=== PATIENT | female | born 1975 | race Caucasian/White ===

== ENCOUNTER 2024-07-16 14:53 | Inpatient (IN) | payer MEDICAID, SELFPAY ==
[2024-07-16] VITALS (25 sets, daily range): BP systolic 116–174; BP diastolic 71–98; PULSE 77–101; RESP 8–29; TEMP 36.3–37.7; O2SAT 95–100
--- NOTE | 2024-07-16 14:55 | W.ED.GENAD ---
Discharge Plan Disposition Patient Disposition: Admit to [facility] Condition: Fair Discharge Details Clinical Impression: Vomiting, Dehydration, BENNIE (acute kidney injury) Primary Care Provider: Laina,Local ED Provider: Dev Haynes Home Meds and New Rx's Prescriptions: No Action No Known Home Meds [facility] General Mode of arrival: EMS. Date/Time Provider Initiated Documentation: 07/16/24 14:55. Limitations to Documentation: no limitations. Information obtained by: patient and RN notes reviewed. HPI Narrative: Patient presents to ED with complaint of vomiting for over 24 hours now. She felt fine on Friday. Began with vomiting morning. She denies having any abdominal pain. She denies nausea but reports that if she tries to eat or drink anything she vomits it back up. She has had no bowel movement and is passed very little gas. Has urinated only once today. Denies any back pain. Denies any fever, cough, chest pain, shortness of breath. She does report muscle spasms and foot cramping. Only previous abdominal surgery is . Because of continued vomiting called EMS and came to ED this afternoon. Related Data Home Medications ?Medication ?Instructions ?Recorded ?Confirmed Unknown [No Known Home Meds] 07/16/24 07/16/24 Allergies Allergy/AdvReac Type Severity Reaction Status Date / Time No Known Allergies Allergy Unverified 07/16/24 14:59 Exam Narrative Exam Narrative: Const: WDWN female in NAD. VS per triage. HEENT: NC/AT. Normal facial exam. Neck: Supple. Trachea midline. Lungs: Normal respiratory effort. Lungs are clear. Cor: RRR without murmur. Good radial pulses. GI: Soft/ND/NT. Neuro: A+O x 3. Normal speech, mentation, gait. Cranial nerves II - XII grossly intact. No gross motor or sensory deficit. Ext: No C/C/E. Medical Decision Making Patient presenting to ED with complaint of vomiting. She denies having abdominal pain or nausea but cannot tolerate anything orally. She is having cramping and foot spasms. She reports no bowel movement and minimal flatus. Only abdominal surgery prior was C-sections. Exam is unremarkable. She has received about 500 mL of fluid in route from EMS. Despite lack of abdominal pain consider obstruction given her report of no bowel movement and minimal flatus. Will continue IV fluids, obtain laboratory studies and CT of the abdomen pelvis. Patient CBC with white count of 25.5, hemoglobin 17.1, hematocrit 50 suggesting significant dehydration and hemoconcentration. Her other labs unfortunately hemolyzed twice. CT scan was obtained which shows no significant abnormality, nothing acute. She had been ordered for a second liter of LR given evidence of hemoconcentration. Subsequent labs did return and patient found to have acute kidney injury with a BUN of 40 and a creatinine of 4.3. Electrolytes not significantly abnormal with her potassium being 3.4, calcium 10.8, anion gap of 16.6. Patient's liver function is normal. Urinalysis is positive for blood and ketones negative for infection and 5-10 red cells seen on micro. Will continue the LR at 150 an hour after her second liter. I have added a CPK given the complaint of muscle pain and blood in the urine but there is no new medications, no change in exertional activity, no recent viral illnesses. She does not have muscle tenderness on exam. I have discussed findings with patient and her family. She will require admission for further fluids and repeat labs. She is agreeable to admission. Case discussed with hospitalist. Lab Data Lab results reviewed: Yes I reviewed the patient's lab results. Lab results narrative: see [facility] All Active Problems (Updated 07/16/24 @ 18:59 by Dev Haynes MD) BENNIE (acute kidney injury) (Acute) Dehydration (Acute) Vomiting (Acute) Medical History No significant past medical history Surgical History History of section Social History Smoking/Tobacco Use Status: Current every day Tobacco Type: cigarettes Smoking risk assessment performed?: Yes Drug use: Daily Substance use type: does not use and marijuana Housing: house Do you feel safe at home: Yes Do you feel safe in your relationship?: Yes
--- NOTE | 2024-07-16 15:32 | DI.CT_ITS ---
Exam(s) CT ABDOMEN PELVIS W EXAM: CT ABDOMEN PELVIS W CLINICAL HISTORY: persistent vomiting, no BM/flatus. TECHNIQUE: Imaging Protocol: Axial computed tomography images with coronal and sagittal reformatted images were created and reviewed CONTRAST MATERIAL: Intravenous: Omnipaque 350 Contrast volume:75 ml Oral: no COMPARISON: No exams were available for comparison FINDINGS: ABDOMEN and PELVIS: Lung Bases: No acute findings. Liver: Normal density. No suspicious mass. Gallbladder and biliary tract: No radiodense calculus. No wall thickening or pericholecystic fluid. No biliary dilation. Pancreas: Normal density. No abnormal calcifications or inflammatory process. No evidence of mass. Spleen: Normal. Kidneys: Normal size, contour and axis. No radiodense stones. No obstructive uropathy. No suspicious masses seen. Adrenal glands: Prominent bilaterally. No masses seen. Vasculature: Abdominal aorta non-dilated. Soft tissues: Unremarkable. Bladder: No gross wall thickening. No calculi.No focal mass. Bowel: No obstruction. No bowel wall thickening. Appendix normal. Moderate quantity of stool in th e right side of colon. A small quantity of stool distally. Peritoneal cavity: No ascites. No focal collection. No mesenteric inflammatory response. No free air . Bones: Unremarkable for age. Reproductive organs: Retroflexed uterus with fibroids. 3.5 centimeter posterior pedunculated fibroid . Lymph nodes: No pathologically enlarged lymph nodes. IMPRESSION:: No acute abnormality in the abdomen or pelvis. RADIATION DOSE DELIVERED: Total DLP DATA REPOSITORY: All CT scans at this facility are submitted to the National Radiology Data Registry (NRDR) Dose Index Registry (DIR) with the [employer] (ACR). RADIATION OPTIMIZATION: All CT scans at this facility use at least one of these dose optimization te chniques: automated exposure control; mA and/or kV adjustment per patient size (includes targeted exa ms where dose is matched to clinical indication); or iterative reconstruction.
[2024-07-16] MEDS: Lactated Ringers 1,000 ML 1000 ML IV ×2 (15:40→17:14)
[2024-07-16] MEDS: Ondansetron 4 MG/2 ML VIAL IVP ×2 (15:41→22:43)
[2024-07-16 15:53] LABS: Abs Immature Grans 0.16 10^3/uL (0.0-0.06); HCT 49.9 % (36.0-46.0); HGB 17.1 g/dL (11.2-15.7); MCH 29.8 pg (27.0-33.0); MCHC 34.3 % (32.0-36.0); MCV 87 fL (80-95); MPV 10.5 fL (8.0-11.0); Platelet Count 380 10^3/uL (130-400); RBC 5.74 10^6/uL (3.93-5.22); RDW 13.4 % (11.7-14.6); RDW-SD 42.6 fL
[2024-07-16 15:57] LABS: WBC 25.49 10^3/uL (4.4-10.8)
[2024-07-16 16:06] LABS: Absolute Neutrophil Count 21.67 10^3/uL (1.2-6.7)
[2024-07-16 16:07] LABS: Absolute Lymphocyte Count 1.27 10^3/uL (1.2-3.4); Absolute Monocyte Count 2.55 10^3/uL (0.1-0.8); Atypical Lymphocytes % 2 %; Diff Comment Manual Differential; RBC Morphology Normal
[2024-07-16] MEDS: Omnipaque 350 MG/ML 100 ML BTL IJ (16:35)
[2024-07-16] MEDS: Normal Saline - Diluent 50 ML VIAL IJ (16:35)
[2024-07-16 17:45] LABS: ALT 16 U/L (14-59); AST 16 U/L (15-37); Albumin 4.4 g/dL (3.4-5.0); Alkaline Phosphatase 69 U/L (46-116); Anion Gap 16.6 mmol/L (3-11); BUN 40 mg/dL (7-18); Bilirubin, Total 0.4 mg/dL (0.2-1.0); CO2 25.4 mmol/L (21.0-32.0); Calcium 10.8 mg/dL (8.5-10.1); Chloride 103 mmol/L (98-107); Estimated GFR 12.15 (mL/min/1.73m2); Glucose 129 mg/dL (74-106); Lipase 29 U/L (<78); Magnesium 2.2 mg/dL (1.8-2.4); Potassium 3.4 mmol/L (3.5-5.1); Sodium 145 mmol/L (136-145); Total Protein 8.2 g/dL (6.4-8.2)
[2024-07-16 17:50] LABS: Bilirubin Small (Negative); Blood Large (Negative); Clarity Cloudy (Clear); Glucose Negative (Negative); Ketones Trace mg/dL (Negative); Leukocyte Esterase Negative (Negative); Nitrite Negative (Negative); Specific Gravity 1.015 (1.005-1.025); Urobilinogen 0.2 mg/dL (Up to 0.2)
[2024-07-16 17:53] LABS: CREATININE 4.3 mg/dL (0.55-1.02)
[2024-07-16 18:00] LABS: Epithelial Cells Few HPF (Negative); WBC Negative HPF (0-5)
[2024-07-16 18:01] LABS: Bacteria Negative HPF (Negative); C & S Indicated? No; Casts Negative LPF (Negative); Crystals Negative HPF (Negative); Mucus Negative (Negative)
[2024-07-16 18:33] LABS: Lab Add On Test DONE
[2024-07-16 18:48] LABS: Creatine Kinase 478 U/L (26-192)
--- NOTE | 2024-07-16 18:59 | W.PM.HP.N ---
Date of service: 07/16/24 Time of Service: 19:00 Assessment and Plan Assessment and plan (1) BENNIE (acute kidney injury): Start date: 07/16/24 Status: Acute Assessment and plan: This is a 48-year-old lady who presents with intractable emesis for 1 day prior to admission with acute dehydration and markedly increased creatinine with moderately increased BUN. She also was heme-concentrated with a leukemoid reaction with blood cultures performed. She had no fever or obvious source of infection with imaging. She is doing well with IV hydration and is will be continued with follow-up lab in the morning. She will receive Zofran for nausea though this is minimal. She does have THC in her urine drug screen and if she does smoke marijuana heavily this should be discussed. I did not discuss it with the patient. She is a full code. (2) Dehydration: Start date: 07/16/24 Status: Acute Assessment and plan: IV hydration with lab monitoring. Patient is tolerating fluids well. (3) Vomiting: Start date: 07/16/24 Status: Acute Assessment and plan: Zofran IV as needed for nausea. Patient did receive 1 dose of Ativan for anxiety and anemia during the night. (4) Leukocytosis (leucocytosis): Start date: 07/16/24 Status: Acute Assessment and plan: Follow-up blood cultures and this should resolve as patient is rehydrated with treatment for her emesis. History of Present Illness History of Present Illness Chief Complaint: Intractable nausea with muscle cramps in feet. Narrative: This is a 48-year-old female patient who has had sudden onset intractable nausea over the last day. She presented to ED because of continued vomiting and was found to have acute renal failure with a creatinine for time baseline and BUN moderately elevated. Potassium was slightly low and the anion gap was elevated with CPK slightly elevated. She was hemoconcentrated with an elevated WBC as well as hemoglobin and slightly reactive platelet count. She had no diarrhea and had no fever or chills. She denied any exposure to ill person living with her father and daughter. 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 She generally is healthy on no medical therapy. She denies any alcohol intake and does not use illicit drugs. Urine drug screen did show THC but no other positive findings. Patient was admitted for IV hydration and did feel better after IV fluid boluses in the ED with continued IV hydration and lab to be reevaluated in the morning. She was admitted for observation. She is a full code. Review of Systems Narrative: 13 point review of systems otherwise unrevealing or stable. Patient does have problems with insomnia when anxious or her mind is overloaded. He takes no medical therapy for this. PFSH All Active Problems (Updated 07/16/24 @ 21:07 by JERRY BROCK) Leukocytosis (leucocytosis) (Acute) BENNIE (acute kidney injury) (Acute) Dehydration (Acute) Vomiting (Acute) Medical History No significant past medical history Surgical History History of section Social History Smoking/Tobacco Use Status: Current every day Tobacco Type: cigarettes Smoking risk assessment performed?: Yes Drug use: Daily Substance use type: does not use and marijuana Housing: house Do you feel safe at home: Yes Do you feel safe in your relationship?: Yes Meds Allergies and Home Medications Allergies Allergy/AdvReac Type Severity Reaction Status Date / Time No Known Allergies Allergy Unverified 07/16/24 14:59 Home Medications ?Medication ?Instructions ?Recorded ?Confirmed ?Type Unknown [No Known Home Meds] 07/16/24 07/16/24 History Exam Narrative Exam Narrative: General: Patient appears appropriate for age, mildly obese, alert and oriented x 3 and in no acute distress. She is slightly anxious and did receive Ativan for sleep. HEENT: Normocephalic, eyes with pupils equal and reactive light symmetric, extraocular movement intact and sclera anicteric. Oropharynx with dry mucosa and good dentition. Neck: Supple without JVD. Back: Normal posture without CVA tenderness. Lungs: Good aeration and no focal rales or rhonchi. Normal vesicular breath sounds. No expiratory wheeze. Breast: Exam deferred. Heart: Regular rate and rhythm with no murmurs or gallops appreciated. Abdomen: Obese contour, soft and nontender to palpation with no palpable hepatosplenomegaly. Bowel sounds positive and normoactive in all quadrants. Genitalia/rectal: Exam deferred. Extremities: No clubbing, cyanosis or pitting edema. Peripheral pulses intact. Skin: Normal color, warm and dry. Neuro: Cranial nerves II through XII gross intact, no focalized motor deficits and no tremor. Psych: Slightly anxious, good eye contact and normal affect. Normal mood. No abnormal thought processes. Remote and recent memory intact. Results Imaging Imaging Studies: Date of Exam: 07/16/24 EXAM: CT ABDOMEN PELVIS W CLINICAL HISTORY: persistent vomiting, no BM/flatus. TECHNIQUE: Imaging Protocol: Axial computed tomography images with coronal and sagittal reformatted images were created and reviewed CONTRAST MATERIAL: Intravenous: Omnipaque 350 Contrast volume:75 ml Oral: no COMPARISON: No exams were available for comparison FINDINGS: ABDOMEN and PELVIS: Lung Bases: No acute findings. Liver: Normal density. No suspicious mass. Gallbladder and biliary tract: No radiodense calculus. No wall thickening or pericholecystic fluid. No biliary dilation. Pancreas: Normal density. No abnormal calcifications or inflammatory process. No evidence of mass. Spleen: Normal. Kidneys: Normal size, contour and axis. No radiodense stones. No obstructive uropathy. No suspicious masses seen. Adrenal glands: Prominent bilaterally. No masses seen. Vasculature: Abdominal aorta non-dilated. Soft tissues: Unremarkable. Bladder: No gross wall thickening. No calculi.No focal mass. Bowel: No obstruction. No bowel wall thickening. Appendix normal. Moderate quantity of stool in the right side of colon. A small quantity of stool distally. Peritoneal cavity: No ascites. No focal collection. No mesenteric inflammatory response. No free air. Bones: Unremarkable for age. Reproductive organs: Retroflexed uterus with fibroids. 3.5 centimeter posterior pedunculated fibroid. Lymph nodes: No pathologically enlarged lymph nodes. IMPRESSION:: No acute abnormality in the abdomen or pelvis. Labs 07/16/24 15:07 07/16/24 16:56 Labs: Laboratory Results - last 24 hr 07/16/24 07/16/24 07/16/24 15:07 16:32 16:56 WBC 25.49 H* RBC 5.74 H Hgb 17.1 H Hct 49.9 H MCV 87 MCH 29.8 MCHC 34.3 RDW 13.4 Plt Count 380 MPV 10.5 Immature Gran % 0.0 Neutrophils % 85.0 Lymphocytes % 3.0 Atypical Lymphs % 2 Monocytes % 10.0 Eosinophils % 0.0 Basophils % 0.0 Nucleated RBC % 0.0 Absolute Neutrophils 21.67 H Absolute Lymphocytes 1.27 Absolute Monocytes 2.55 H Absolute Eosinophils 0.00 Absolute Basophils 0.00 RBC Morphology Normal Sodium 145 Potassium 3.4 L Chloride 103 Carbon Dioxide 25.4 Anion Gap 16.6 H BUN 40 H Creatinine 4.3 H* Est GFR (CKD-EPI 2020) 12.15 Glucose 129 H Calcium 10.8 H Magnesium 2.2 Total Bilirubin 0.4 AST 16 ALT 16 Alkaline Phosphatase 69 Creatine Kinase 478 H Total Protein 8.2 Albumin 4.4 Lipase 29 Urine Color Urine Clarity Urine pH Ur Specific [place] Urine Protein Urine Ketones Urine Blood Urine Nitrite Urine Bilirubin Urine Urobilinogen Ur Leukocyte Esterase Urine RBC Urine WBC Ur Epithelial Cells Urine Crystals Urine Bacteria Urine Casts Urine Mucus Ur Culture Indicated? Urine Glucose Add-On Test Request 07/16/24 07/16/24 17:40 18:02 WBC RBC Hgb Hct MCV MCH MCHC RDW Plt Count MPV Immature Gran % Neutrophils % Lymphocytes % Atypical Lymphs % Monocytes % Eosinophils % Basophils % Nucleated RBC % Absolute Neutrophils Absolute Lymphocytes Absolute Monocytes Absolute Eosinophils Absolute Basophils RBC Morphology Sodium Potassium Chloride Carbon Dioxide Anion Gap BUN Creatinine Est GFR (CKD-EPI 2020) Glucose Calcium Magnesium Total Bilirubin AST ALT Alkaline Phosphatase Creatine Kinase Total Protein Albumin Lipase Urine Color Yellow Urine Clarity Cloudy Urine pH 5.0 Ur Specific [place] 1.015 Urine Protein >=300 H Urine Ketones Trace H Urine Blood Large H Urine Nitrite Negative Urine Bilirubin Small H Urine Urobilinogen 0.2 Ur Leukocyte Esterase Negative Urine RBC 5-10 H Urine WBC Negative Ur Epithelial Cells Few Urine Crystals Negative Urine Bacteria Negative Urine Casts Negative Urine Mucus Negative Ur Culture Indicated? No Urine Glucose Negative Add-On Test Request DONE Last Vital Signs Temp 36.3 C L 07/16/24 15:01 Pulse 89 07/16/24 18:30 Resp 14 07/16/24 17:15 BP 151/97 H 07/16/24 18:30 Pulse Ox 96 07/16/24 18:30 Time Spent Time spent with Patient: 40-54 minutes Time was spent: preparing to see the patient(eg.review tests), obtaining and/or reviewing separately otained hiistory, ordering medications,tests, procedures, indepentently interpreting results and counseling the patient
[2024-07-16] MEDS: Lactated Ringers 1,000 ML 150 ML IV (19:16)
[2024-07-16 20:22] LABS: COVID-19 PCR Negative (Negative); Influenza A PCR Negative (Negative); Influenza B PCR Negative (Negative); RSV PCR Negative (Negative); Source Nasopharynx
--- NOTE | 2024-07-16 20:53 | W.PCEDHO ---
Registration Status: Primary Language: Preferred Language: ED Information & Data Chief Complaint Nausea/Vomit/Diar 07/16/24 15:00 Chief Complaint Nausea/Vomit/Diar 07/16/24 14:53 Triage Note vomiting since 10am 07/16/24 14:53 yesterday leg cramping started today, Medical / Surgical History (Last Reviewed 07/16/24 @ 19:01 by Chuck Gonzalez) No significant past medical history (Last Reviewed 07/16/24 @ 19:01 by Chuck Gonzalez) History of section Most Recent Vital Signs Temperature 36.3 C L 07/16/24 15:01 Temperature Source Tympanic 07/16/24 15:01 Pulse 99 H 07/16/24 19:20 Pulse 80 07/16/24 17:15 Respiratory Rate 28 H 07/16/24 19:20 Blood Pressure 161/80 H 07/16/24 19:16 Blood Pressure Mean 116 07/16/24 18:30 Pulse Oximetry 97 07/16/24 19:20 Oxygen Delivery Method Room Air 07/16/24 15:01 Oxygen Flow Rate 0 07/16/24 15:01 Allergies No Known Allergies Allergy (Unverified 07/16/24 14:59) Precautions Isolation Standard precaution 07/16/24 15:00 Active Medications Generic Name Dose Route Start Last Admin Trade Name Gadrenia PRN Reason Stop Dose Admin Ringer's Solution 1,000 mls @ 150 mls/hr 07/16/24 18:15 07/16/24 19:16 IV 150 mls/hr INFUSION JENNIFER Administration Iohexol 100 ml 07/16/24 16:45 07/16/24 16:35 Omnipaque 350 Mg/Ml 100 Ml Btl IJ 08/15/24 23:59 75 ml DIRECTED JENNIFER Administration Sodium Chloride 50 ml 07/16/24 16:45 07/16/24 16:35 Normal Saline - Diluent 50 Ml Vial IJ 50 ml .FOR DI USE JENNIFER Administration IV IV Catheter Type [Left Saline Lock Antecubital] IV Catheter Gauge [Left 20 Antecubital] Diagnostics 07/16/24 07/16/24 07/16/24 Range/Units 19:38 18:02 17:40 WBC (4.4-10.8) 10^3/uL RBC (3.93-5.22) 10^6/uL Hgb (11.2-15.7) g/dL Hct (36.0-46.0) % MCV (80-95) fL MCH (27.0-33.0) pg MCHC (32.0-36.0) % RDW (11.7-14.6) % Plt Count (130-400) 10^3/uL MPV (8.0-11.0) fL Immature Gran % % Neutrophils % % Lymphocytes % % Atypical Lymphs % % Monocytes % % Eosinophils % % Basophils % % Nucleated RBC % (0.0-0.3) % Absolute Neutrophils (1.2-6.7) 10^3/uL Absolute Lymphocytes (1.2-3.4) 10^3/uL Absolute Monocytes (0.1-0.8) 10^3/uL Absolute Eosinophils (0.0-0.7) 10^3/uL Absolute Basophils (0.0-0.2) 10^3/uL RBC Morphology Sodium (136-145) mmol/L Potassium (3.5-5.1) mmol/L Chloride (98-107) mmol/L Carbon Dioxide (21.0-32.0) mmol/L Anion Gap (3-11) mmol/L BUN (7-18) mg/dL Creatinine (0.55-1.02) mg/dL Est GFR (CKD-EPI 2020) (mL/min/1.73m2) Glucose (74-106) mg/dL Calcium (8.5-10.1) mg/dL Magnesium (1.8-2.4) mg/dL Total Bilirubin (0.2-1.0) mg/dL AST (15-37) U/L ALT (14-59) U/L Alkaline Phosphatase (46-116) U/L Creatine Kinase (26-192) U/L Total Protein (6.4-8.2) g/dL Albumin (3.4-5.0) g/dL Lipase (<78) U/L Urine Color Yellow (Yellow) Urine Clarity Cloudy (Clear) Urine pH 5.0 (5-8) Ur Specific [place] 1.015 (1.005-1.025) Urine Protein >=300 H (Neg-Trace) mg/dL Urine Ketones Trace H (Negative) mg/dL Urine Blood Large H (Negative) Urine Nitrite Negative (Negative) Urine Bilirubin Small H (Negative) Urine Urobilinogen 0.2 (Up to 0.2) mg/dL Ur Leukocyte Esterase Negative (Negative) Urine RBC 5-10 H (0-2) HPF Urine WBC Negative (0-5) HPF Ur Epithelial Cells Few (Negative) HPF Urine Crystals Negative (Negative) HPF Urine Bacteria Negative (Negative) HPF Urine Casts Negative (Negative) LPF Urine Mucus Negative (Negative) Ur Culture Indicated? No Urine Glucose Negative (Negative) mg/dL COVID-19 Source Nasopharynx SARS-CoV-2 (PCR) Negative (Negative) Influenza Type A (PCR) Negative (Negative) Influenza Type B (PCR) Negative (Negative) RSV (PCR) Negative (Negative) Add-On Test Request DONE 07/16/24 07/16/24 07/16/24 Range/Units 16:56 16:32 15:07 WBC 25.49 H* (4.4-10.8) 10^3/uL RBC 5.74 H (3.93-5.22) 10^6/uL Hgb 17.1 H (11.2-15.7) g/dL Hct 49.9 H (36.0-46.0) % MCV 87 (80-95) fL MCH 29.8 (27.0-33.0) pg MCHC 34.3 (32.0-36.0) % RDW 13.4 (11.7-14.6) % Plt Count 380 (130-400) 10^3/uL MPV 10.5 (8.0-11.0) fL Immature Gran % 0.0 % Neutrophils % 85.0 % Lymphocytes % 3.0 % Atypical Lymphs % 2 % Monocytes % 10.0 % Eosinophils % 0.0 % Basophils % 0.0 % Nucleated RBC % 0.0 (0.0-0.3) % Absolute Neutrophils 21.67 H (1.2-6.7) 10^3/uL Absolute Lymphocytes 1.27 (1.2-3.4) 10^3/uL Absolute Monocytes 2.55 H (0.1-0.8) 10^3/uL Absolute Eosinophils 0.00 (0.0-0.7) 10^3/uL Absolute Basophils 0.00 (0.0-0.2) 10^3/uL RBC Morphology Normal Sodium 145 (136-145) mmol/L Potassium 3.4 L (3.5-5.1) mmol/L Chloride 103 (98-107) mmol/L Carbon Dioxide 25.4 (21.0-32.0) mmol/L Anion Gap 16.6 H (3-11) mmol/L BUN 40 H (7-18) mg/dL Creatinine 4.3 H* (0.55-1.02) mg/dL Est GFR (CKD-EPI 2020) 12.15 (mL/min/1.73m2) Glucose 129 H (74-106) mg/dL Calcium 10.8 H (8.5-10.1) mg/dL Magnesium 2.2 (1.8-2.4) mg/dL Total Bilirubin 0.4 (0.2-1.0) mg/dL AST 16 (15-37) U/L ALT 16 (14-59) U/L Alkaline Phosphatase 69 (46-116) U/L Creatine Kinase 478 H (26-192) U/L Total Protein 8.2 (6.4-8.2) g/dL Albumin 4.4 (3.4-5.0) g/dL Lipase 29 (<78) U/L Urine Color (Yellow) Urine Clarity (Clear) Urine pH (5-8) Ur Specific [place] (1.005-1.025) Urine Protein (Neg-Trace) mg/dL Urine Ketones (Negative) mg/dL Urine Blood (Negative) Urine Nitrite (Negative) Urine Bilirubin (Negative) Urine Urobilinogen (Up to 0.2) mg/dL Ur Leukocyte Esterase (Negative) Urine RBC (0-2) HPF Urine WBC (0-5) HPF Ur Epithelial Cells (Negative) HPF Urine Crystals (Negative) HPF Urine Bacteria (Negative) HPF Urine Casts (Negative) LPF Urine Mucus (Negative) Ur Culture Indicated? Urine Glucose (Negative) mg/dL COVID-19 Source SARS-CoV-2 (PCR) (Negative) Influenza Type A (PCR) (Negative) Influenza Type B (PCR) (Negative) RSV (PCR) (Negative) Add-On Test Request 07/16/24 19:37 Blood Culture - Pending Blood 07/16/24 19:30 Blood Culture - Pending Blood [id number] Documentation POC Urine Test Start: 07/16/24 15:31 Freq: .Urine Test Status: Active Protocol: Activity Type Activity Date Activity User E-sign Co-sign Detail Recorded Client Recorded Date Recorded By Document 07/16/24 18:22 AK [id number] 07/16/24 18:22 AK Intake and Output - 24 Hour Total 07/16/24 14:45 thru 07/16/24 19:15 Intake Total 2009 Balance 2009 Weight 77.065 kg Intake: IV 2009 Falls Risk Assessment History of Falls No History 07/16/24 17:27 Fall Total Score 0 07/16/24 17:27 Level of Risk Standard/Low Risk 07/16/24 17:27 Problems (Last Reviewed 07/16/24 @ 19:01 by Chuck Gonzalez) Leukocytosis (leucocytosis) (Acute) BENNIE (acute kidney injury) (Acute) Dehydration (Acute) Vomiting (Acute) v v v v v v v v v Sending and/or Receiving Nurses: Please use comment section below to note any information pertinent to the patient hand-off not included above. Information / Comments: pt is A+Ox4, vomiting x2 days. LR at 150ml/hr. tachycardic Report received from: jihan Lucia RN
[2024-07-16] MEDS: Normal Saline Flush 10 ML SYR IVP (22:42)
[2024-07-17] MEDS: LORazepam 1 MG TAB PO (00:13)
[2024-07-17 00:21] LABS: *AMPHETAMINES SCREEN URINE Negative (Negative); *BARBITURATES SCREEN URINE Negative (Negative); *BENZODIAZEPINES SCREEN URINE Negative (Negative); Cannabinoids THC Positive (Negative); Cocaine Screen,Urine Negative (Negative); METHADONE URINE SCREEN Negative (Negative); OPIATES URINE SCREEN Negative (Negative); Tricyclic Antidepressants Negative (Negative)
[2024-07-17] MEDS: Lactated Ringers 1,000 ML 150 ML IV ×3 (01:45→21:58)
[2024-07-17] MEDS: Normal Saline Flush 10 ML SYR IVP ×8 (02:20→20:45)
[2024-07-17] MEDS: Ondansetron 4 MG/2 ML VIAL IVP ×4 (02:21→18:06)
[2024-07-17 07:00] LABS: HCT 38.4 % (36.0-46.0); HGB 13.2 g/dL (11.2-15.7); MCH 30.1 pg (27.0-33.0); MCHC 34.4 % (32.0-36.0); MCV 88 fL (80-95); MPV 9.5 fL (8.0-11.0); Platelet Count 323 10^3/uL (130-400); RBC 4.38 10^6/uL (3.93-5.22); RDW 13.8 % (11.7-14.6); RDW-SD 44.4 fL; WBC 19.47 10^3/uL (4.4-10.8)
[2024-07-17 07:17] LABS: ALT 19 U/L (14-59); AST 31 U/L (15-37); Albumin 3.6 g/dL (3.4-5.0); Alkaline Phosphatase 59 U/L (46-116); Anion Gap 11.1 mmol/L (3-11); BUN 35 mg/dL (7-18); Bilirubin, Total 0.6 mg/dL (0.2-1.0); CO2 29.9 mmol/L (21.0-32.0); CREATININE 1.8 mg/dL (0.55-1.02); Calcium 9.8 mg/dL (8.5-10.1); Chloride 104 mmol/L (98-107); Estimated GFR 34.54 (mL/min/1.73m2); Glucose 105 mg/dL (74-106); Magnesium 1.9 mg/dL (1.8-2.4); Potassium 3.4 mmol/L (3.5-5.1); Sodium 145 mmol/L (136-145); Total Protein 6.8 g/dL (6.4-8.2)
[2024-07-17] MEDS: Enoxaparin 30 MG/0.3 ML SYR SC (08:50)
--- NOTE | 2024-07-17 09:11 | INITIAL_ITS ---
Date of service: 07/17/24 Time of Service: 09:11 Care Management Initial Assmt Initial Assessment Reason for Hospitalization: BENNIE Functional Status/Living Situation Patient Presentation: Amy lives in a single family home in [place], [place] with her father and her 16 year old daughter Sondra. 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 She does not require the use of any DME or ambulatory aides and does not receive any community services. Amy was admitted with dehydration and BENNIE with a creatinine of 4.3 on admission. She has no history of renal disease however she had been vomiting for a couple of days. This morning her Creatinine was down to 1.8 and she reported feeling much better. She is receiving parenteral antiemetics Q 4h and has been able to tolerate some jello and clear liquids. 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) Instrumental Activities of Daily Living (ADLs): Independent Physical Functioning/Mobility Assistive Device: none Advance Directives Advance Directives: Do you have an Advance Directive: AD On File at [facility]: N 02/28/16 12:21 Date Asked 07/16/24 07/16/24 15:18 AD Date Reviewed COLST On File at [facility] No 07/16/24 15:18 COLST Date Scanned Code Status Resuscitation Status Full Code Portal Pt does not currently have a portal and education provided: Yes Insurance Coverage/Financial Issues Insurance: Medicaid Care Team Visit Care Team Role Provider Type Local No Primary Care Provider NON-[facility] STAFF PHYSICIAN Dev Haynes MD Emergency Provider [facility] STAFF PHYSICIAN Chuck Gonzalez Admit Provider NON-[facility] STAFF PHYSICIAN Attending Provider Discharge Potential Discharge Needs: PCP F/U Appt Anticipated Barriers to Discharge: None Identified Patient/Family Education Needs: Review discharge instructions, discuss Ask Me Three Transportation: Private vehicle Plan: Anticipate Amy will be discharged home with no new services. She will follow up with her community providers and plan of care and transport with family. CM will follow. Social Determinants of Health Screening Social Determinants of Health last assessed: 07/17/24 Will the Patient Participate in the Screening?: Yes Do you worry about having a steady place to live?: no Problems where you live: no known problems In the past 12 months, have you had to go without electric, gas, oil or water in your home?: no Have you or anyone in your house had to go without enough food to eat?: no Has lack of transportation kept you from medical appointments or from doing things needed for daily living?: no Has anyone in your life made you feel unsafe or unsupported?: no How hard is it for you to pay for the very basics like food, housing, medical care, and heating? Would you say it is:: Not hard at all Do you want help finding or keeping work or a job?: I do not need or want help If for any reason you need help with day-to-day activities such as bathing, preparing meals, shopping, managing finances, etc., do you get the help you need?: I get all the help I need How often do you feel lonely or isolated from those around you?: Never Do you speak a language other than Georgian at home?: No Does the patient want assistance with any of the above?: No PFSH All Active Problems (Updated 07/16/24 @ 21:07 by JERRY BROCK) Leukocytosis (leucocytosis) (Acute) BENNIE (acute kidney injury) (Acute) Dehydration (Acute) Vomiting (Acute) Medical History No significant past medical history Surgical History History of section Social History Smoking/Tobacco Use Status: Current every day Tobacco Type: cigarettes Smoking risk assessment performed?: Yes Drug use: Daily Substance use type: does not use and marijuana Housing: house Do you feel safe at home: Yes Do you feel safe in your relationship?: Yes
[2024-07-17 09:52] VITALS: BP 131/79; PULSE 69; RESP 16; TEMP 37.3; O2SAT 97
[2024-07-17] MEDS: POTASSIUM CHLORIDE 20 MEQ/100 ML BAG 50 MEQ IV_INF (10:06)
--- NOTE | 2024-07-17 12:17 | PHA.REVIEW2 ---
Pharmacy Admission Review Admission Clinical Review Admission Pharmacy Review: Leukocytosis (leucocytosis) (Acute) BENNIE (acute kidney injury) (Acute) Dehydration (Acute) Vomiting (Acute) No Known Allergies Allergy (Unverified 07/16/24 14:59) Resuscitation Status Full Code Height 5 ft 8 in Weight 77.065 kg Comments Comments/Follow Ups: Blood cultures pending Pharmacy Admission Review Renal Dosing Renal Dosing: BUN 35 mg/dL (7-18) H 07/17/24 06:25 Creatinine 1.8 mg/dL (0.55-1.02) H D 07/17/24 06:25 Medications needing adjustments: Reviewed (CrCl 42.19 mL/min, BUN decreased from 40 and SCr decreased from 4.3) List of meds needing interventions: Current medications are okay Anticoagulation Anticoagulation: Hgb 13.2 g/dL (11.2-15.7) D 07/17/24 06:25 Hct 38.4 % (36.0-46.0) 07/17/24 06:25 Plt Count 323 10^3/uL (130-400) 07/17/24 06:25 Creatinine 1.8 mg/dL (0.55-1.02) H D 07/17/24 06:25 DVT Prophylaxis: Intervened (increased enoxaparin from 30mg daily to 40mg daily due to improved renal function) Medications: Enoxaparin (40mg daily) Relevant Labs Relevant Labs: Sodium 145 mmol/L (136-145) 07/17/24 06:25 Potassium 3.4 mmol/L (3.5-5.1) L 07/17/24 06:25 Chloride 104 mmol/L (98-107) 07/17/24 06:25 Magnesium 1.9 mg/dL (1.8-2.4) 07/17/24 06:25 Electrolytes, C-Reactive P, ESR: Reviewed (K 3.4 - 20 mEq IV infusion given this morning, WBC decreased from 25.49 to 19.47) Cardiac Review BP, HR, EF%: Reviewed (HR and BP WNL) QTc Review QTc: Reviewed (No EKG on file - provider aware of scheduled Zofran order and will look into obtaining an EKG) IV to PO Switch IV Medications: Reviewed (ondansetron) Home Meds Home Med List reviewed: Reviewed Relevent Home Meds Not ordered & why?: No known home meds Current Meds Current Medication Order Review: Reviewed Comments Comments/Follow Ups: Blood cultures pending
--- NOTE | 2024-07-17 12:35 | PGE_ITS ---
Date of Service Date of service: 07/17/24 Time of Service: 12:35 Assessment and Plan Assessment and plan (1) Severe sepsis: Status: Acute Assessment and plan: Sepsis criteria met with tachycardia HR 101 and tachypnea RR 28, WBC 28 - no obvious source initially but now has bacteremia w GPC Severe with Cr at 4.3 (2) Gram-positive cocci bacteremia: Start date: 07/17/24 Status: Acute Assessment and plan: On positive bottle for GPC in in cluster--other bottle pending Repeat blood Cx Loading dose of Vancomycin and evaluate in AM no fever or obvious source of infection with imaging Cr improving CBC in AM (3) BENNIE (acute kidney injury): Start date: 07/16/24 Status: Acute Assessment and plan: In intractable emesis for 1 day prior to admission Cr 1.8 from 4.3 continue IVF BMP in AM (4) Leukocytosis (leucocytosis): Start date: 07/16/24 Status: Acute Assessment and plan: improving (5) Dehydration: Start date: 07/16/24 Status: Acute Assessment and plan: Continue IV hydration Clears tolerated w/o emesis (6) Vomiting: Start date: 07/16/24 Status: Acute Assessment and plan: Continue Zofran IV and compazine IV as needed for nausea. PRN Ativan for anxiety and NRT ordered DVT on lovenox Discussed with Dr. Haro Subjective Subjective Patient reports: feels better, pain is less, tolerating liquids well, voiding w/o difficulty and nausea; denies tolerating a regular diet, no bowel movement, diarrhea, vomiting, shortness of breath or fever Exam Narrative Exam Narrative: Constitutional The patient is in bed with intermittent abd cramps , without acute distress Neuro:alert and oriented to self, person, place, time and situation. No neurological focal deficit Chest:Chest is symmetrical and normal appearance Resp: Normal respiratory pattern, speaks in full sentences, unlabored breathing, clear lung bilaterally Cardio: regular rhythm, S1, S2, no murmur, capillary refill<3 sec., bilateral radial and dorsalis pedis pulses are positive, palpable GI: Abdomen is not distended, soft and minimally tender, bowel sounds are present : Negative Costovertebral angle tenderness, no bladder distension Back/spine/Pelvis: No back tenderness, normal alignment Extremities: strength 5/5 to bilateral lower and upper extremities Psych: RASS 0, congruent mood and normal affect. Objective Last Vital Signs Temp 37.3 C 07/17/24 09:52 Pulse 69 07/17/24 09:52 Resp 16 07/17/24 09:52 BP 131/79 07/17/24 09:52 Pulse Ox 97 07/17/24 09:52 Laboratory Results - last 24 hr 07/16/24 07/16/24 07/16/24 15:07 16:32 16:56 WBC 25.49 H* RBC 5.74 H Hgb 17.1 H Hct 49.9 H MCV 87 MCH 29.8 MCHC 34.3 RDW 13.4 Plt Count 380 MPV 10.5 Immature Gran % 0.0 Neutrophils % 85.0 Lymphocytes % 3.0 Atypical Lymphs % 2 Monocytes % 10.0 Eosinophils % 0.0 Basophils % 0.0 Nucleated RBC % 0.0 Absolute Neutrophils 21.67 H Absolute Lymphocytes 1.27 Absolute Monocytes 2.55 H Absolute Eosinophils 0.00 Absolute Basophils 0.00 RBC Morphology Normal Sodium 145 Potassium 3.4 L Chloride 103 Carbon Dioxide 25.4 Anion Gap 16.6 H BUN 40 H Creatinine 4.3 H* Est GFR (CKD-EPI 2020) 12.15 Glucose 129 H Calcium 10.8 H Magnesium 2.2 Total Bilirubin 0.4 AST 16 ALT 16 Alkaline Phosphatase 69 Creatine Kinase 478 H Total Protein 8.2 Albumin 4.4 Lipase 29 Urine Color Urine Clarity Urine pH Ur Specific [place] Urine Protein Urine Ketones Urine Blood Urine Nitrite Urine Bilirubin Urine Urobilinogen Ur Leukocyte Esterase Urine RBC Urine WBC Ur Epithelial Cells Urine Crystals Urine Bacteria Urine Casts Urine Mucus Ur Culture Indicated? Urine Glucose Urine Opiates Screen Urine Methadone Screen Ur Barbiturates Screen Ur Tricyclics Screen Ur Amphetamines Screen U Benzodiazepines Scrn Urine Cocaine Screen Ur THC Screen COVID-19 Source SARS-CoV-2 (PCR) Influenza Type A (PCR) Influenza Type B (PCR) RSV (PCR) Add-On Test Request 07/16/24 07/16/24 07/16/24 17:40 18:02 19:38 WBC RBC Hgb Hct MCV MCH MCHC RDW Plt Count MPV Immature Gran % Neutrophils % Lymphocytes % Atypical Lymphs % Monocytes % Eosinophils % Basophils % Nucleated RBC % Absolute Neutrophils Absolute Lymphocytes Absolute Monocytes Absolute Eosinophils Absolute Basophils RBC Morphology Sodium Potassium Chloride Carbon Dioxide Anion Gap BUN Creatinine Est GFR (CKD-EPI 2020) Glucose Calcium Magnesium Total Bilirubin AST ALT Alkaline Phosphatase Creatine Kinase Total Protein Albumin Lipase Urine Color Yellow Urine Clarity Cloudy Urine pH 5.0 Ur Specific [place] 1.015 Urine Protein >=300 H Urine Ketones Trace H Urine Blood Large H Urine Nitrite Negative Urine Bilirubin Small H Urine Urobilinogen 0.2 Ur Leukocyte Esterase Negative Urine RBC 5-10 H Urine WBC Negative Ur Epithelial Cells Few Urine Crystals Negative Urine Bacteria Negative Urine Casts Negative Urine Mucus Negative Ur Culture Indicated? No Urine Glucose Negative Urine Opiates Screen Negative Urine Methadone Screen Negative Ur Barbiturates Screen Negative Ur Tricyclics Screen Negative Ur Amphetamines Screen Negative U Benzodiazepines Scrn Negative Urine Cocaine Screen Negative Ur THC Screen Positive A COVID-19 Source Nasopharynx SARS-CoV-2 (PCR) Negative Influenza Type A (PCR) Negative Influenza Type B (PCR) Negative RSV (PCR) Negative Add-On Test Request DONE 07/17/24 06:25 WBC 19.47 H RBC 4.38 Hgb 13.2 D Hct 38.4 MCV 88 MCH 30.1 MCHC 34.4 RDW 13.8 Plt Count 323 MPV 9.5 Immature Gran % Neutrophils % Lymphocytes % Atypical Lymphs % Monocytes % Eosinophils % Basophils % Nucleated RBC % Absolute Neutrophils Absolute Lymphocytes Absolute Monocytes Absolute Eosinophils Absolute Basophils RBC Morphology Sodium 145 Potassium 3.4 L Chloride 104 Carbon Dioxide 29.9 Anion Gap 11.1 H BUN 35 H Creatinine 1.8 H D Est GFR (CKD-EPI 2020) 34.54 Glucose 105 Calcium 9.8 Magnesium 1.9 Total Bilirubin 0.6 AST 31 ALT 19 Alkaline Phosphatase 59 Creatine Kinase Total Protein 6.8 Albumin 3.6 Lipase Urine Color Urine Clarity Urine pH Ur Specific [place] Urine Protein Urine Ketones Urine Blood Urine Nitrite Urine Bilirubin Urine Urobilinogen Ur Leukocyte Esterase Urine RBC Urine WBC Ur Epithelial Cells Urine Crystals Urine Bacteria Urine Casts Urine Mucus Ur Culture Indicated? Urine Glucose Urine Opiates Screen Urine Methadone Screen Ur Barbiturates Screen Ur Tricyclics Screen Ur Amphetamines Screen U Benzodiazepines Scrn Urine Cocaine Screen Ur THC Screen COVID-19 Source SARS-CoV-2 (PCR) Influenza Type A (PCR) Influenza Type B (PCR) RSV (PCR) Add-On Test Request Time Spent with Patient Time Spent with Patient: >50 minutes Time was spent: preparing to see the patient(eg.review tests), obtaining and/or reviewing separately otained hiistory, ordering medications,tests, procedures, referring, communicating with other health daycare manager, indepentently interpreting results, counseling the patient and care coordination
[2024-07-17] MEDS: Nicotine 21 MG/24 HR PATCH TD (13:49)
[2024-07-17] MEDS: Prochlorperazine 10 MG/2 ML VIAL 5 MG IVP ×2 (13:50→20:45)
[2024-07-17 15:16] VITALS: BP 110/73; PULSE 62; RESP 16; TEMP 36.5; O2SAT 97
[2024-07-17] MEDS: cefTRIAXone 2 GM/50 ML BAG IVPB (17:13)
[2024-07-17] MEDS: VANCOMYCIN 1,500 MG in Normal Saline 500 ML 333.333 MG IV (18:31)
[2024-07-17 19:32] VITALS: BP 125/76; PULSE 65; RESP 16; TEMP 37.6; O2SAT 96
[2024-07-17] MEDS: LORazepam 0.5 MG TAB PO (20:43)
[2024-07-17 23:07] VITALS: BP 99/65; PULSE 63; RESP 15; TEMP 36.7; O2SAT 96
[2024-07-18] MEDS: LORazepam 0.5 MG TAB PO ×2 (02:46→16:33)
[2024-07-18] MEDS: Ondansetron 4 MG/2 ML VIAL IVP (02:47)
[2024-07-18] MEDS: Normal Saline Flush 10 ML SYR IVP ×6 (02:48→20:21)
[2024-07-18 03:13] VITALS: BP 128/71; PULSE 69; RESP 16; TEMP 37.1; O2SAT 97
[2024-07-18] MEDS: cefTRIAXone 2 GM/50 ML BAG IVPB (05:04)
[2024-07-18] MEDS: Prochlorperazine 10 MG/2 ML VIAL IVP ×3 (06:15→22:09)
[2024-07-18 06:44] LABS: HCT 34.5 % (36.0-46.0); HGB 11.6 g/dL (11.2-15.7); MCH 29.9 pg (27.0-33.0); MCHC 33.6 % (32.0-36.0); MCV 89 fL (80-95); MPV 9.5 fL (8.0-11.0); Platelet Count 243 10^3/uL (130-400); RBC 3.88 10^6/uL (3.93-5.22); RDW 13.4 % (11.7-14.6); WBC 10.24 10^3/uL (4.4-10.8)
[2024-07-18 07:19] LABS: ALT 43 U/L (14-59); AST 57 U/L (15-37); Albumin 2.9 g/dL (3.4-5.0); Alkaline Phosphatase 48 U/L (46-116); Anion Gap 8.6 mmol/L (3-11); BUN 17 mg/dL (7-18); Bilirubin, Total 0.5 mg/dL (0.2-1.0); CO2 28.4 mmol/L (21.0-32.0); Calcium 8.8 mg/dL (8.5-10.1); Chloride 104 mmol/L (98-107); Estimated GFR 69.93 (mL/min/1.73m2); Glucose 149 mg/dL (74-106); Magnesium 1.7 mg/dL (1.8-2.4); Potassium 3.5 mmol/L (3.5-5.1); Sodium 141 mmol/L (136-145); Total Protein 5.9 g/dL (6.4-8.2)
[2024-07-18 07:36] VITALS: BP 110/77; PULSE 66; RESP 18; TEMP 37.2; O2SAT 94
[2024-07-18] MEDS: Nicotine 21 MG/24 HR PATCH TD (08:02)
[2024-07-18] MEDS: Enoxaparin 40 MG/0.4 ML SYR SC (08:02)
--- NOTE | 2024-07-18 09:13 | W.PM.PROGNOT ---
Date of Service Date of service: 07/18/24 Time of Service: 09:13 Assessment and Plan Assessment and plan (1) Severe sepsis: Status: Acute Assessment and plan: Criteria met for sepsis : tachycardia HR 101 and tachypnea RR 28, WBC 28 - no obvious source initially but now has bacteremia w GPC No obvious port of entry except minimal bilat scabbing over heel nicks - might be contaminant Severe with Cr at 4.3 (2) Gram-positive cocci bacteremia: Start date: 07/17/24 Status: Acute Assessment and plan: Only one bottle positive for GPC in in cluster- awaiting further results Repeat blood Cx: results pending Loading dose of Vancomycin and evaluate in AM Will continue Vanco until further result on Cx - second bottle negative - this might be a contaminant D/c ceftriaxone no fever or obvious source of infection with imagingt , no IVDA Hx, no sick contact with Hx of MRSA Cr improving CBC in AM (3) BENNIE (acute kidney injury): Start date: 07/16/24 Status: Acute Assessment and plan: In intractable emesis for 1 day prior to admission- now resolved Cr 1.0 from 4.3m stop IVF BMP in AM (4) Leukocytosis (leucocytosis): Start date: 07/16/24 Status: Acute Assessment and plan: Now resolved (5) Dehydration: Start date: 07/16/24 Status: Acute Assessment and plan: Resolved Stop IV hydration Clears tolerated w/o emesis- advance diet (6) Vomiting: Start date: 07/16/24 Status: Acute Assessment and plan: Continue Zofran IV and compazine IV as needed for nausea. PRN Ativan for anxiety and NRT ordered DVT on lovenox Discussed with Dr. Rodriguez Subjective Subjective Patient reports: feels better, pain is less, tolerating liquids well, voiding w/o difficulty, nausea and other (Denies IVD use); denies tolerating a regular diet, no bowel movement, diarrhea, vomiting, shortness of breath or fever Exam Narrative Exam Narrative: Constitutional The patient in bed without acute distress Neuro:alert and oriented X4 Resp: Normal respiratory pattern, speaks in full sentences, unlabored breathing, clear lung bilaterally Cardio: regular rhythm, S1, S2, GI: Abdomen is not distended, soft and non-tender, bowel sounds are present : Negative Costovertebral angle tenderness Back/spine/Pelvis: No back tenderness, normal alignment Extremities: strength 5/5 to bilateral lower and upper extremities Skin: bilsteral scab over heel abraisons, no other open wounds or port of entry for GPC seen Psych: RASS 0, congruent mood and normal affect. Objective Last Vital Signs Temp 37.2 C 07/18/24 07:36 Pulse 66 07/18/24 07:36 Resp 18 07/18/24 07:36 BP 110/77 07/18/24 07:36 Pulse Ox 94 07/18/24 07:36 Laboratory Results - last 24 hr 07/18/24 06:05 WBC 10.24 RBC 3.88 L Hgb 11.6 Hct 34.5 L MCV 89 MCH 29.9 MCHC 33.6 RDW 13.4 Plt Count 243 MPV 9.5 Sodium 141 Potassium 3.5 Chloride 104 Carbon Dioxide 28.4 Anion Gap 8.6 BUN 17 Creatinine 1.0 Est GFR (CKD-EPI 2020) 69.93 Glucose 149 H Calcium 8.8 Magnesium 1.7 L Total Bilirubin 0.5 AST 57 H ALT 43 Alkaline Phosphatase 48 Total Protein 5.9 L Albumin 2.9 L Time Spent with Patient Time Spent with Patient: >50 minutes Time was spent: preparing to see the patient(eg.review tests), obtaining and/or reviewing separately otained hiistory, ordering medications,tests, procedures, referring, communicating with other health primary care sales representative, indepentently interpreting results, counseling the patient and care coordination
[2024-07-18] MEDS: Lactated Ringers 1,000 ML 150 ML IV (09:17)
[2024-07-18 10:56] LABS: MRSA PCR Negative (Negative)
[2024-07-18 10:58] VITALS: BP 133/82; PULSE 65; RESP 18; TEMP 37.4; O2SAT 97
[2024-07-18] MEDS: VANCOMYCIN/WATER (PEG) 1 GM/200 ML BAG IVPB ×2 (11:49→22:09)
[2024-07-18 17:32] VITALS: BP 141/76; PULSE 63; RESP 18; TEMP 37.5; O2SAT 95
[2024-07-18 19:49] VITALS: BP 102/60; PULSE 65; RESP 15; TEMP 36.7; O2SAT 95
[2024-07-18 22:55] VITALS: BP 140/83; PULSE 65; RESP 15; TEMP 37.8; O2SAT 95
[2024-07-19] MEDS: LORazepam 0.5 MG TAB PO ×2 (00:01→08:27)
[2024-07-19 05:53] VITALS: TEMP 36.8
[2024-07-19] MEDS: Prochlorperazine 10 MG/2 ML VIAL IVP (06:33)
[2024-07-19 06:36] LABS: Abs Immature Grans 0.03 10^3/uL (0.0-0.06); Absolute Basophil Count 0.02 10^3/uL (0.0-0.2); Absolute Eosinophil Count 0.08 10^3/uL (0.0-0.7); Absolute Lymphocyte Count 2.94 10^3/uL (1.2-3.4); Absolute Monocyte Count 0.96 10^3/uL (0.1-0.8); Absolute Neutrophil Count 4.03 10^3/uL (1.2-6.7); Basophils % 0.2 %; HCT 36.1 % (36.0-46.0); HGB 12.6 g/dL (11.2-15.7); Immature Grans % 0.4 %; Lymphocytes % 36.5 %; MCH 30.5 pg (27.0-33.0); MCHC 34.9 % (32.0-36.0); MCV 87 fL (80-95); MPV 9.6 fL (8.0-11.0); Monocytes % 11.9 %; Platelet Count 245 10^3/uL (130-400); RBC 4.13 10^6/uL (3.93-5.22); RDW 12.8 % (11.7-14.6); RDW-SD 41.1 fL; WBC 8.06 10^3/uL (4.4-10.8)
[2024-07-19 06:54] LABS: Anion Gap 4.8 mmol/L (3-11); BUN 9 mg/dL (7-18); CO2 28.2 mmol/L (21.0-32.0); CREATININE 0.7 mg/dL (0.55-1.02); Calcium 8.8 mg/dL (8.5-10.1); Chloride 109 mmol/L (98-107); Estimated GFR 107.28 (mL/min/1.73m2); Glucose 101 mg/dL (74-106); Potassium 3.7 mmol/L (3.5-5.1); Sodium 142 mmol/L (136-145)
[2024-07-19 06:59] LABS: Vancomycin, Random 14.7 ug/mL
[2024-07-19] MEDS: Enoxaparin 40 MG/0.4 ML SYR SC (08:29)
[2024-07-19] MEDS: Normal Saline Flush 10 ML SYR IVP (08:32)
[2024-07-19] MEDS: Nicotine 21 MG/24 HR PATCH TD (08:36)
[2024-07-19 08:43] VITALS: BP 132/68; PULSE 68; RESP 18; TEMP 37; O2SAT 97
--- NOTE | 2024-07-19 08:50 | PDOC.CMPRO ---
Date of service: 07/19/24 Time of Service: 08:51 Care Management Progress Note Discharge Potential Discharge Needs: PCP F/U Appt Anticipated Barriers to Discharge: None Identified Patient/Family Education Needs: Review discharge instructions, discuss Ask Me Three Transportation: Private vehicle Plan: Anticipate Amy will be discharged home with no new services when medically ready. She will follow up with her community providers and plan of care and transport with family. CM will follow. Social Determinants of Health Screening Social Determinants of Health last assessed: 07/19/24 Will the Patient Participate in the Screening?: Yes Do you worry about having a steady place to live?: no Problems where you live: no known problems In the past 12 months, have you had to go without electric, gas, oil or water in your home?: no Have you or anyone in your house had to go without enough food to eat?: no Has lack of transportation kept you from medical appointments or from doing things needed for daily living?: no Has anyone in your life made you feel unsafe or unsupported?: no How hard is it for you to pay for the very basics like food, housing, medical care, and heating? Would you say it is:: Not hard at all Do you want help finding or keeping work or a job?: I do not need or want help If for any reason you need help with day-to-day activities such as bathing, preparing meals, shopping, managing finances, etc., do you get the help you need?: I get all the help I need How often do you feel lonely or isolated from those around you?: Never Do you speak a language other than Yoruba at home?: No Does the patient want assistance with any of the above?: No
--- NOTE | 2024-07-19 10:36 | DSE_ITS ---
Date of service: 07/19/24 Time of Service: 10:36 DS: Diagnosis Discharge Diagnosis (1) Severe sepsis: Status: Acute (2) Gram-positive cocci bacteremia: Status: Ruled-out (3) BENNIE (acute kidney injury): Status: Acute (4) Leukocytosis (leucocytosis): Status: Acute (5) Dehydration: Status: Acute (6) Vomiting: Status: Acute Discharge Plan Disposition Patient Disposition: Home Condition: Improving Discharge Details Reason For Visit: BENNIE with dehydration,intractable emesis,leukocytos Admit Date/Time: 07/16/24 19:10 Admit Provider: Chuck Gonzalez Attending Provider: Chuck Gonzalez Primary Care Provider: Meryl Marina Hospital Course Hospital Course: This is 48-year-old female patient no significant past medical history who presented to the emergency department on 07/16/24 for evaluation of intractable nausea/vomiting over 24 hours. Workup in the ED was significant for acute renal failure with a creatinine at 4.3 with a moderately elevated BUN,and a slight hypokalemia, leukocytosis and hemoconcentration. CT imaging showed no acute findings. No report of chills , fever, diarrhea, or IVDA or sick contact. The patient was admitted to the hospitalist service on the medical surgical floor for further management of BENNIE stage II, dehydration intractable nausea, vomiting with antiemetics, IVF and ceftriaxone. Blood culture grew GPC and vancomycin IV added. Repeated blood cultures negative. This represents containment and antibiotics discontinued as no source of infection identified On the day of discharge the patient was tolerating oral intake, chemistry and electrolytes were at baseline. Will be discharged home with follow-up with PCP, return sooner for new or worsening symptoms. No services. she requested a medication for anxiety at discharge, she will be provided hydroxyzine 25 mg to use TID prn. discuss further management with her pcp outpatient discussed with DR Rodriguez [place] Meds and New Rx's Prescriptions: New hydroxyzine HCl 25 mg tablet 25 mg PO TID PRNQty: 10 0RF ondansetron 4 mg tablet,disintegrating 4 mg PO Q4H PRN (Reason: nausea and vomiting) Qty: 10 0RF Discharge Instructions Instructions: Dehydration, Adult (DC), Acute Kidney Injury (DC), Nausea and Vomiting, Adult ED Additional Instructions: continue to advance diet as tolerated take medications as directed. Referrals: [facility],Local [Primary Care Provider] - Activity:: Activity as Tolerated Equipment/Supplies:: No Equipment Needed Diet:: As Tolerated Discharge Orders Discharge Orders: Discharge Order (Routine); Ordered 07/19/24 Ordered By: Muna Lucero DS: Summary Time Spent with Patient providing and/or coordinating discharge services: Less than 30 minutes Status at Discharge Functional status at discharge: independent ambulation Overall status at discharge: patient is progressing back to baseline Mental Status: mental status grossly normal Speech and Movement: speech and movement normal Mood: congruent mood Affect: normal affect Quality:SDOH Health Related Social Needs: No Data to Display Exam Const General: cooperative, comfortable and no acute distress Nutritional Appearance: average body habitus Orientation: alert, awake and oriented x3 HENMT Head: normal to inspection, normocephalic and atraumatic Mouth: oral mucosae normal Eyes General: appearance normal, both eyes and all related structures Neck Neck: normal visual inspection Chest Chest: normal inspection of the chest Resp Effort & Inspection: normal respiratory effort Cardio Rate: regular rate Other: pink warm dry and well perfused GI Inspection: normal to inspection Palpation: soft and nontender Skin General skin exam: no rashes or lesions noted Neuro General: patient alert, patient awake and patient oriented x3 Extrem General: normal to inspection and full ROM Psych Mental Status: mental status grossly normal Speech and Movement: speech and movement normal Mood: congruent mood Affect: normal affect DS: Data Vitals/I&O Vitals and I&O: Vital Signs Temperature 37 C 07/19/24 08:43 Temperature Source Temporal Artery Scan 07/19/24 08:43 Pulse 68 07/19/24 08:43 Pulse Rhythm Regular 07/16/24 22:34 Pulse 80 07/16/24 17:15 Respiratory Rate 18 07/19/24 08:43 Respiratory Effort Normal, Non-Labored 07/16/24 22:34 Respiratory Depth Normal 07/16/24 22:34 Respiratory Pattern Normal 07/16/24 22:34 Blood Pressure 132/68 07/19/24 08:43 Blood Pressure Mean 116 07/16/24 18:30 Pulse Oximetry 97 07/19/24 08:43 Oxygen Delivery Method Room Air 07/19/24 08:43 Oxygen Flow Rate 0 07/19/24 08:43 Pain Level 0 07/18/24 20:21 Comment bp map 75 07/17/24 23:07 Intake & Output 07/18/24 07/18/24 07/19/24 11:59 23:59 11:59 Intake Total 1357.5 / 3680.0 2322.5 / 3680.0 Output Total 1000 / 1000 1000 / 1000 Balance 357.5 / 2680.0 2322.5 / 2680.0 -1000 / -1000 Weight 80.9 kg 78.3 kg Intake: IV 1357.5 / 2450.0 1092.5 / 2450.0 Oral 1230 / 1230 Output: Urine 1000 / 1000 1000 / 1000 Other: Urine Color Light Mona Yellow Yellow Urine Appearance Clear Clear Cloudy Urine Odor Normal None Normal Comment per patient she voided Stool Size Small Small Stool Characteristics Formed Brown Data Completed and Pending Labs on day of discharge: Labs from last 24 hours 07/19/24 07/18/24 06:05 09:38 WBC 8.06 RBC 4.13 Hgb 12.6 Hct 36.1 MCV 87 MCH 30.5 MCHC 34.9 RDW 12.8 Plt Count 245 MPV 9.6 Immature Gran % 0.4 Neutrophils % 50.0 Lymphocytes % 36.5 Monocytes % 11.9 Eosinophils % 1.0 Basophils % 0.2 Nucleated RBC % 0.0 Absolute Neutrophils 4.03 Absolute Lymphocytes 2.94 Absolute Monocytes 0.96 H Absolute Eosinophils 0.08 Absolute Basophils 0.02 Sodium 142 Potassium 3.7 Chloride 109 H Carbon Dioxide 28.2 Anion Gap 4.8 BUN 9 Creatinine 0.7 Est GFR (CKD-EPI 2020) 107.28 Glucose 101 Calcium 8.8 Random Vancomycin 14.7 MRSA (TEM-PCR) Negative Preliminary micro results at discharge 07/16/24 19:30 Blood Culture - Preliminary Blood Staph hominis ssp hominis 07/16/24 19:37 Blood Culture - Preliminary Blood NO GROWTH 48 HOURS 07/17/24 18:48 Blood Culture - Preliminary Blood NO GROWTH 24 HOURS 07/17/24 18:40 Blood Culture - Preliminary Blood NO GROWTH 24 HOURS PFSH All Active Problems (Updated 07/19/24 @ 10:36 by Muna Lucero NP) Severe sepsis (Acute) Leukocytosis (leucocytosis) (Acute) BENNIE (acute kidney injury) (Acute) Dehydration (Acute) Vomiting (Acute) Medical History No significant past medical history Surgical History History of section Social History Smoking/Tobacco Use Status: Current every day Tobacco Type: cigarettes Smoking risk assessment performed?: Yes Drug use: Daily Substance use type: does not use and marijuana Housing: house Do you feel safe at home: Yes Do you feel safe in your relationship?: Yes Time Spent with Patient Time Spent with Patient: <45 minutes Time was spent: preparing to see the patient(eg.review tests), obtaining and/or reviewing separately otained hiistory, ordering medications,tests, procedures, indepentently interpreting results and counseling the patient
[2024-07-19] MEDS: VANCOMYCIN/WATER (PEG) 1 GM/200 ML BAG IVPB (10:57)
--- NOTE | 2024-07-19 10:57 | PDOC.CMDIS ---
Date of service: 07/19/24 Time of Service: 10:57 LACE Index Scoring Tool Questions: Length of Stay (in days): 3 Was the patient admitted via the E.D.?: Yes E.D. Visits: 1 Answers: Total Score: 7 Risk of Readmission: Low Risk Care Management Discharge Plan Reason for Hospitalization: BENNIE with Dehydration Discharge Plan: Amy is being discharged home via private vehicle. She will follow up with community providers and discharge plan of care as directed. Her plan is to establish care with a PCP at [facility] at [place], when she's ready; but in the meantime is offered a hospital d/c appointment using the T-doc scheduled. No new services are ordered. Patient/Family Education Needs: Review discharge instructions, limitations, medications and plan to follow up with community providers. Discuss ask me three. SDOH Health Related Social Needs: No Data to Display
[2024-07-19 11:10] VITALS: BP 120/77; PULSE 84; RESP 18; TEMP 37.3; O2SAT 96
--- NOTE | 2024-07-19 12:52 | NUR.NOTE ---
Documentation reviewed with Tianna Gómez student nurse. Agree with assessment, Joann Dunlap, DORENE, RNC-OB, clinical instructor
== END 2024-07-19 12:22 | disposition home or self-care (01) | DRG 684 ==
LOC: ER 21:05 → MS 21:07
PROVIDERS: Nurse Practitioner Acute Care; Admitting Provider Family Medicine; Emergency Provider Emergency Medicine; Responsible Provider Nurse Practitioner Acute Care; Visit Provider Family Medicine
DX: N17.9 Acute kidney failure, unspecified (principal); E86.0 Dehydration; R11.2 Nausea with vomiting, unspecified; D72.823 Leukemoid reaction; E87.6 Hypokalemia; F17.210 Nicotine dependence, cigarettes, uncomplicated; F41.9 Anxiety disorder, unspecified
CPT/HCPCS: 00123; 36415; 80048; 80053; 80307; 81025; 82550; 83690; 85027; 87040; 87077; 87637; 87641; 96361; 96374; 99285; J1650; 74177; 80202; 81003; 81015; 83735; 85025; 87186; 99222; 99233; 99239; J0696; J0780; J2405; J3370; J3372; J3480; J3490